=== PATIENT | male | born 1975 | race American Indian/Alaskan Native ===

== ENCOUNTER 2021-10-18 08:33 | Emergency (ER) | payer SELFPAY ==
[2021-10-18 09:23] LABS: Basophils % (Auto) 0.4 % (0.0-1.8); Eosinophils # (Auto) 0.1 K/mm3 (0.0-0.4); Eosinophils % (Auto) 0.8 % (0.0-4.3); Hematocrit 46.3 % (35.5-45.6); Hemoglobin 15.1 gm/dl (11.8-15.2); Lymphocytes # (Auto) 1.4 K/mm3 (1.2-5.4); Lymphocytes % (Auto) 19.1 % (13.4-35.0); Mean Corpuscular HGB Conc 33 % (32-34); Mean Corpuscular Volume 99 fl (84-94); Monocytes # (Auto) 0.4 K/mm3 (0.0-0.8); Monocytes % (Auto) 5.5 % (0.0-7.3); Platelet Count 224 K/mm3 (140-440); Red Cell Distribution Width 12.9 % (13.2-15.2)
[2021-10-18 09:34] LABS: Bilirubin,Urine NEG (Negative); Blood,Urine NEG (Negative); Color,Urine Yellow (Yellow); Mucus,Urine FEW /HPF; Protein,Urine <15 mg/dL mg/dL (Negative)
[2021-10-18 09:45] LABS: Amphetamine Screen,Urine Negative; Benzodiazepines Screen,Urine Negative; Cannabinoid Screen,Urine Negative; Cocaine Screen,Urine Negative; Methadone Screen,Urine Negative; Opiate Screen,Urine Negative
--- NOTE | 2021-10-18 10:14 | XRay Report ---
CHEST 2 VIEWS INDICATION / CLINICAL INFORMATION: Chest Pain. COMPARISON: None available. FINDINGS: SUPPORT DEVICES: None. HEART / MEDIASTINUM: No significant abnormality. LUNGS / PLEURA: No significant pulmonary or pleural abnormality. No pneumothorax. ADDITIONAL FINDINGS: Mild thoracic scoliosis is noted. IMPRESSION: 1. No acute findings. Signer Name: Brandon Cadet Jr, MD Signed: 10/18/2021 10:10 AM Workstation Name: [id number]
[2021-10-18 10:35] LABS: INR 0.87 (0.87-1.13)
[2021-10-18 10:36] LABS: Partial Thromboplastin Time 31.5 Sec. (24.2-36.6)
[2021-10-18 11:07] LABS: Alanine Aminotransferase 11 units/L (7-56); Albumin 4.6 g/dL (3.9-5); BUN/Creatinine Ratio 14; Blood Urea Nitrogen 15 mg/dL (9-20); Calcium 9.6 mg/dL (8.4-10.2); Hemolysis Index 5
[2021-10-18] MEDS ORDERED: MORPHINE 4 MG/1 ML INJ IV ONE (11:42)
[2021-10-18] MEDS ORDERED: SODIUM CHLORIDE 0.9% 1000 ML 1,000 ML IV ONE (11:42)
[2021-10-18] MEDS ORDERED: ONDANSETRON 4 MG/2 ML INJ IV ONE (11:42)
--- NOTE | 2021-10-18 11:48 | Emergency Department Report ---
ED Abdominal Pain HPI - General Chief Complaint: Chest Pain Stated Complaint: STOMACH PAIN Time Seen by Provider: 10/18/21 11:38 Source: patient Mode of arrival: Ambulatory Limitations: No Limitations - History of Present Illness Initial Comments: Patient is 46 years old male with no significant past medical history. Patient presented to the ER complaining of left upper quadrant abdominal pain for the last 2 weeks getting worse over the last few days. Patient denies any chest pain. He denies any shortness of breath, fever chills or cough. Patient also denied any nausea or vomiting. He denied any diarrhea. MD Complaint: abdominal pain -: week(s) Location: [facility] Radiation: none Migration to: no migration Severity: moderate Severity scale (0 -10): 5 - Related Data Previous Rx's Medication Instructions Recorded Last Taken Type Nitrofurantoin [place]hin/M-Cryst 100 mg PO Q12HR #14 capsule 04/17/13 Unknown Rx [Macrobid] traMADoL [Ultram 50 MG tab] 50 mg PO Q6HR PRN #20 tablet 04/17/13 Unknown Rx Allergies Allergy/AdvReac Type Severity Reaction Status Date / Time No Known Allergies Allergy Verified 04/17/13 04:54 ED Review of Systems ROS: Stated complaint: STOMACH PAIN Other details as noted in HPI Comment: All other systems reviewed and negative Constitutional: denies: chills, fever Respiratory: denies: cough, shortness of breath, SOB with exertion, SOB at rest Cardiovascular: denies: chest pain, palpitations Gastrointestinal: abdominal pain. denies: nausea, vomiting, diarrhea, constipation, hematemesis, melena, hematochezia Musculoskeletal: denies: back pain Neurological: denies: headache, weakness, numbness, paresthesias, confusion, abnormal gait ED Past Medical Hx - Past Medical History Previous Medical History?: No - Surgical History Past Surgical History?: No - Social History Smoking Status: Current Every Day Smoker - Medications Home Medications: Home Medications Medication Instructions Recorded Confirmed Last Taken Type Nitrofurantoin [place]/M-Cryst 100 mg PO Q12HR #14 capsule 04/17/13 Unknown Rx [Macrobid] traMADoL [Ultram 50 MG tab] 50 mg PO Q6HR PRN #20 tablet 04/17/13 Unknown Rx ED Physical Exam - General Limitations: No Limitations General appearance: alert, in no apparent distress - Head Head exam: Present: atraumatic, normocephalic, normal inspection - Eye Eye exam: Present: normal appearance - ENT ENT exam: Present: normal exam, normal orophraynx, mucous membranes moist - Neck Neck exam: Present: normal inspection, full ROM. Absent: tenderness, meningismus - Respiratory Respiratory exam: Present: normal lung sounds bilaterally - Cardiovascular Cardiovascular Exam: Present: regular rate, normal rhythm, normal heart sounds - GI/Abdominal GI/Abdominal exam: Present: soft, tenderness, normal bowel sounds. Absent: distended, guarding, rebound, rigid, mass, bruit, pulsatile mass, hernia - Extremities Exam Extremities exam: Present: normal inspection, full ROM, normal capillary refill. Absent: tenderness, pedal edema, joint swelling, calf tenderness - Back Exam Back exam: Present: normal inspection, full ROM. Absent: CVA tenderness (R), CVA tenderness (L) - Neurological Exam Neurological exam: Present: alert, oriented X3, CN II-XII intact, normal gait, reflexes normal. Absent: motor sensory deficit - Psychiatric Psychiatric exam: Present: normal mood - Skin Skin exam: Present: warm, intact, normal color ED Course Vital Signs 10/18/21 10/18/21 10/18/21 08:48 11:44 12:19 Temperature 98.7 F Pulse Rate 71 85 Respiratory 16 18 18 Rate Blood Pressure 111/65 Blood Pressure 103/75 [Left] O2 Sat by Pulse 98 99 99 Oximetry 10/18/21 10/18/21 12:26 14:50 Temperature Pulse Rate 56 L 74 Respiratory 18 18 Rate Blood Pressure Blood Pressure 99/61 128/60 [Left] O2 Sat by Pulse 99 99 Oximetry ED Medical Decision Making - Lab Data Result diagrams: 10/18/21 09:04 10/18/21 09:04 - EKG Data -: EKG Interpreted by [facility] EKG shows normal: sinus rhythm Rate: normal - EKG Data Interpretation: no acute changes - Radiology Data Radiology results: report reviewed - Medical Decision Making Patient is 46 years old male with no significant past medical history. Patient presented to the ER complaining of left upper quadrant abdominal pain for the last 2 weeks getting worse over the last few days. Patient denies any chest pain. He denies any shortness of breath, fever chills or cough. Patient also denied any nausea or vomiting. He denied any diarrhea. EKG is unremarkable. Patient received morphine, Zofran. Patient stated that he is feeling much better. Labs reviewed and is unremarkable chest x-ray is negative for acute finding. CT abdomen and pelvis with IV contrast is unremarkable for acute finding. Patient given prescription for Naprosyn and advised to follow-up with his primary care physician in the next 2 to 3 days and to return to the ER if he develop any new symptoms. Critical care attestation.: If time is entered above; I have spent that time in minutes in the direct care of this critically ill patient, excluding procedure time. ED Disposition Clinical Impression: Acute abdominal pain, Acute costochondritis Disposition: HOME / SELF CARE / HOMELESS Is pt being admited?: No Condition: Stable Instructions: Costochondritis, [id number], Abdominal Pain, Adult Referrals: PRIMARY CARE, [Primary Care Provider] - 3-5 Days
--- NOTE | 2021-10-18 14:26 | Cat Scan Report ---
CT ABDOMEN AND PELVIS WITH INTRAVENOUS CONTRAST INDICATION / CLINICAL INFORMATION: Lower abdominal pain for 3 days. TECHNIQUE: 100 cc Omnipaque [address] scans at this location are performed using CT d ose reduction for [employer] by means of automated exposure control. COMPARISON: None available. FINDINGS: ABDOMEN: There is localized calcification in the region of the pancreatic tail between the liver and spleen. The pancreas is otherwise normal. The liver, spleen, gallbladder, bile ducts, adrenal glands, kidneys and bowel demonstrate no significant abnormality. No adenopathy is present. No vascular abno rmality is seen. The lung bases are clear. PELVIS: The distal ureters, urinary bladder, prostate gland and seminal vesicles are normal. There is no evidence of appendicitis or diverticulitis. No abnormal mass or fluid collection is seen. I do no t identify a hernia. IMPRESSION: 1. No acute abnormality is identified. 2. Localized nonspecific calcifications in the region of the pancreatic tail are likely dystrophic an d of questionable clinical significance. Signer Name: Fili Otoole MD Signed: 10/18/2021 2:21 PM Workstation Name: [id number]
[2021-10-18 15:55] VITALS: BP 110/66
--- NOTE | 2021-10-19 12:23 | Electrocardiograph Report ---
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
== END 2021-10-18 15:55 | disposition home or self-care (01) ==
LOC: ED 08:33
DX: R10.12 Left upper quadrant pain (principal); M94.0 Chondrocostal junction syndrome [Tietze]; F17.290 Nicotine dependence, other tobacco product, uncomplicated
CPT/HCPCS: 36415; 71046; 74177; 80053; 80307; 81001; 84484; 85025; 85379; 85610; 85730; 93005; 96360; 99285; J2270; J2405; J7030; Q9967